=== PATIENT | male | born 1980 | race Caucasian/White ===

== ENCOUNTER 2018-02-14 17:57 | Emergency (ER) | payer BC, MEDICAID ==
[2018-02-14 18:12] VITALS: BP 132/97; PULSE 95; RESP 16; TEMP 98.3; O2SAT 99
[2018-02-14] MEDS ORDERED: Amoxicillin-Clav 875-125 mg Tab PO STA (18:18)
--- NOTE | 2018-02-14 18:18 | C.PDOC ---
History Of Present Illness 37 yo male come in for evaluation of Right earache gradually developed for past 3 days. Pt reports, pain is started to radiating down to Right lower jaw and neck area now. Otherwise, pt denies fever, chills, headache, dizziness, vertigo , ear discharge, sore throat, drooling, dysphagia, dyspnea, toothache, cough, CP , SOB, denies any other active complaints. Ambulate to Ed for evaluation, not in any apparent distress. Time Seen by Provider: 02/14/18 18:07 Chief Complaint (Nursing): ENT Problem History Per: Patient Onset/Duration Of Symptoms: Gradual Past Medical History Reviewed: Historical Data, Nursing Documentation, Vital Signs Vital Signs: Last Vital Signs Temp 98.3 F 02/14/18 18:10 Pulse 95 H 02/14/18 18:10 Resp 16 02/14/18 18:10 BP 132/97 H 02/14/18 18:10 Pulse Ox 99 02/14/18 18:10 - Medical History PMH: No Chronic Diseases Family History: States: No Known Family Hx - Social History Hx Alcohol Use: Yes Hx Substance Use: No - Immunization History Hx Tetanus Toxoid Vaccination: No Hx Influenza Vaccination: No Hx Pneumococcal Vaccination: No Review Of Systems Except As Marked, All Systems Reviewed And Found Negative. Constitutional: Negative for: Fever, Chills Eyes: Negative for: Vision Change ENT: Positive for: Ear Pain. Negative for: Ear Discharge, Mouth Pain, Mouth Swelling, Throat Pain, Throat Swelling Cardiovascular: Negative for: Chest Pain Respiratory: Negative for: Cough, Shortness of Breath, Wheezing Gastrointestinal: Negative for: Nausea, Vomiting, Abdominal Pain Musculoskeletal: Negative for: Neck Pain Neurological: Negative for: Headache, Dizziness Physical Exam - Physical Exam Appears: Well, Non-toxic, No Acute Distress Skin: Normal Color, Warm, Dry, No Rash Head: Normacephalic Eye(s): bilateral: PERRL Ear(s): Left: Normal, Right: TM Erythema, Bilateral: Other (no mastoid tenderness, edema or erythema) Nose: No Flaring, No Discharge Oral Mucosa: Moist, No Drooling Tongue: Normal Appearing Gingiva: Normal Appearing Throat: No Erythema, No Drooling Neck: Trachea Midline, Supple Lymphatic: Adenopathy (mild Right anterior cervical) Cardiovascular: Rhythm Regular, No Murmur Respiratory: No Decreased Breath Sounds, No Accessory Muscle Use, No Stridor, No Wheezing Back: Normal Inspection Extremity: Normal ROM, No Pedal Edema Neurological/Psych: Oriented x3, Normal Speech ED Course And Treatment O2 Sat by Pulse Oximetry: 99 Pulse Ox Interpretation: Normal Progress Note: On re-eavluation, pt is afebrile, hemodynamicaly stable. NOn- toxic. PulseOx 99% RA. ENT: exam c/w Right otitis media. neck: Supple, (-) JVD. Lungs: CTA B/L, BS equal B/L. Neuorlogicaly intact. Pt advised on course of ds. ref. to f/u with PMD in 2-3 days for re-eval. return to ED if any worsening ro new changes. Disposition Counseled Patient/Family Regarding: Diagnosis, Need For Followup, Rx Given - Disposition Referrals: Dario Faust MD [Staff Provider] - Disposition: HOME/ ROUTINE Disposition Time: 18:19 Condition: STABLE Additional Instructions: Avoid water exposure to Right ear Take medication as prescribed Follow up with PMD, ENT in 2-3 days for re-evaluation. return to ED if any worsening or new changes. Prescriptions: Amoxicillin/Clavulanate [Augmentin 875 MG-125 MG] 1 tab PO BID #14 tab Ibuprofen [Motrin Tab] 600 mg PO TID #20 tab Instructions: Ear Infections (Otitis Media) - Clinical Impression Clinical Impression: Otitis media
[2018-02-14] MEDS ORDERED: Amoxicillin-Clav 250-62.5 mg/5 ml Susp (75 ml) ONE (18:24)
== END 2018-02-14 18:46 | disposition home or self-care (01) ==
LOC: C.ER 17:57
DX: H66.91 Otitis media, unspecified, right ear (principal)

== ENCOUNTER 2018-11-19 17:58 | Emergency (ER) | payer MEDICAID, OTHER ==
[2018-11-19 18:08] VITALS: BP 121/86; PULSE 69; RESP 18; TEMP 98.6; O2SAT 99
[2018-11-19] MEDS ORDERED: Naproxen 550 mg Tab PO STA (18:25)
--- NOTE | 2018-11-19 18:27 | C.PDOC ---
History Of Present Illness 37 y/o male comes in to ED complaining of worsening lower back pain. Patient has a history of herniated disc and had surgery done 2 years ago. Reports that the pain is 7/10 and sharp. He has taken tylenol with minimal relief. Patient has not followed up with his doctor for the pain. He denies trauma or recent fall. Chief Complaint (Nursing): Back Pain History Per: Patient History/Exam Limitations: no limitations Onset/Duration Of Symptoms: Days Current Symptoms Are (Timing): Still Present Past Medical History Reviewed: Historical Data, Nursing Documentation, Vital Signs Vital Signs: Last Vital Signs Temp 98.6 F 11/19/18 18:04 Pulse 69 11/19/18 18:04 Resp 18 11/19/18 18:04 BP 121/86 11/19/18 18:04 Pulse Ox 99 11/19/18 18:04 - Medical History PMH: Back Problems Family History: States: No Known Family Hx - Social History Hx Alcohol Use: Yes Hx Substance Use: No - Immunization History Hx Tetanus Toxoid Vaccination: No Hx Influenza Vaccination: No Hx Pneumococcal Vaccination: No Review Of Systems Except As Marked, All Systems Reviewed And Found Negative. Gastrointestinal: Negative for: Nausea, Vomiting Genitourinary: Negative for: Dysuria, Hematuria Musculoskeletal: Positive for: Back Pain Physical Exam - Physical Exam Appears: Non-toxic, No Acute Distress Skin: Warm, Dry Head: Atraumatic Eye(s): bilateral: Normal Inspection Oral Mucosa: Moist Neck: Supple Back: Vertebral Tenderness, Paraspinal Tenderness Extremity: Normal ROM, No Tenderness, No Deformity, No Swelling Extremity: Bilateral: Atraumatic, Normal Color And Temperature Neurological/Psych: Oriented x3, Normal Speech, Normal Motor, Normal Sensation ED Course And Treatment O2 Sat by Pulse Oximetry: 99 (RA) Pulse Ox Interpretation: Normal Medical Decision Making Medical Decision Making: Plan: --Naproxen 550 mg PO --Flexeril 10 mg PO Disposition Counseled Patient/Family Regarding: Diagnosis, Need For Followup, Rx Given - Disposition Referrals: Kobe Barrett MD [Staff Provider] - Disposition: HOME/ ROUTINE Disposition Time: 18:28 Condition: IMPROVED Additional Instructions: Continue Naproxen and Flexeril as instructed follow up with Neurosurgery for further assessment- MRI may be warranted return to ED if symptoms worsen Prescriptions: Cyclobenzaprine [Flexeril] 10 mg PO TID PRN #15 tab PRN Reason: Muscle Spasm Naproxen [Naprosyn] 500 mg PO BID #30 tablet Instructions: Herniated Disc (DC), Do I Need an X-ray (or Other Test) for Low Back Pain? Forms: [facility] (Kazakh), Work Excuse - Clinical Impression Clinical Impression: Low back pain, Herniated disc - PA / [employer] / Resident 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 - Scribe Statement The provider has reviewed the documentation as recorded by the Scribvon Byrnes All medical record entries made by the Yvette were at my direction and personally dictated by me. I have reviewed the chart and agree that the record accurately reflects my personal performance of the history, physical exam, medical decision making, and the department course for this patient. I have also personally directed, reviewed, and agree with the discharge instructions and disposition.
[2018-11-19] MEDS ORDERED: Naproxen 550 mg Tab PO ONE (18:29)
== END 2018-11-19 18:37 | disposition home or self-care (01) ==
LOC: C.ER 17:58
DX: M51.26 Other intervertebral disc displacement, lumbar region (principal)

== ENCOUNTER 2018-11-26 17:03 | Emergency (ER) | payer OTHER ==
[2018-11-26 17:53] VITALS: TEMP 98.2; O2SAT 100
--- NOTE | 2018-11-26 18:19 | RAD ---
Date of service: 11/26/2018 PROCEDURE: Radiographs of the Lumbar Spine. Three views. HISTORY: s/p fall COMPARISON: Lumbar spine radiographs performed 09/04/16 FINDINGS: BONES: Alignment appears satisfactory. No listhesis. No acute displaced fracture identified. Degenerative changes including small anterior osteophyte formation. DISC SPACES: Intervertebral disc space narrowing most prominent at L4-L5. OTHER FINDINGS: None. IMPRESSION: No acute displaced fracture or dislocation identified. Intervertebral disc space narrowing most prominent at L4-L5.
--- NOTE | 2018-11-26 18:38 | C.PDOC ---
History Of Present Illness Patient is a 38 year old male who presents to the ED s/p fall that happened 4 days ago and is c/o low back pain. Patient states that he was walking downstairs and slipped and fell down 4 steps. He denies any head injury, LOC, injury, weakness, numbness, or urinary or bowel incontinence. Of note: He was here recently in the ED c/o back pain and was given Naproxen and Flexeril for history of Herniated disc. He has not been compliant with meds. Chief Complaint (Nursing): Back Pain History Per: Patient History/Exam Limitations: no limitations Onset/Duration Of Symptoms: Days (4) Current Symptoms Are (Timing): Still Present Recent travel outside of the [place]: No Additional History Per: Patient Past Medical History Reviewed: Historical Data, Nursing Documentation, Vital Signs Vital Signs: Last Vital Signs Temp 98.2 F 11/26/18 17:52 Pulse 94 H 11/26/18 17:52 Resp 19 11/26/18 17:52 BP 122/84 11/26/18 17:52 Pulse Ox 100 11/26/18 17:52 Primary Care Provider: Alexi Reyna Surg - Medical History PMH: Back Problems Surgical History: No Surg Hx Family History: States: No Known Family Hx - Social History Hx Alcohol Use: Yes Hx Substance Use: No - Immunization History Hx Tetanus Toxoid Vaccination: No Hx Influenza Vaccination: No Hx Pneumococcal Vaccination: No Review Of Systems Cardiovascular: Negative for: Chest Pain Respiratory: Negative for: Shortness of Breath Genitourinary: Negative for: Incontinence Musculoskeletal: Positive for: Back Pain (low ) Neurological: Negative for: Weakness, Numbness Physical Exam - Physical Exam Appears: Non-toxic, No Acute Distress Skin: Warm, Dry Head: Atraumatic, Normacephalic Eye(s): bilateral: PERRL, EOMI Oral Mucosa: Moist Neck: Normal ROM, Supple Chest: Symmetrical Cardiovascular: Rhythm Regular, No Murmur Respiratory: Normal Breath Sounds, No Accessory Muscle Use Gastrointestinal/Abdominal: Soft, No Tenderness Back: Vertebral Tenderness (lumbar spine ), Decreased ROM (limited ROM with pain ), Paraspinal Tenderness (lumbar spine ), Other (no ecchymosis, edema, or erythema) Extremity: Capillary Refill (less than 2 seconds) Pulses: Left Dorsalis Pedis: Normal, Right Dorsalis Pedis: Normal Neurological/Psych: Oriented x3 ED Course And Treatment O2 Sat by Pulse Oximetry: 100 (on RA) Pulse Ox Interpretation: Normal - Other Rad Xray LS Spine X-Ray: Viewed By Me, Read By Radiologist Interpretation: Date of service: 11/26/2018. PROCEDURE: Radiographs of the Lumbar Spine. Three views. HISTORY: s/p fall. COMPARISON: Lumbar spine radiographs performed 09/04/16. FINDINGS: BONES: Alignment appears satisfactory. No listhesis. No acute displaced fracture identified. Degenerative changes including small anterior osteophyte formation. DISC SPACES: Intervertebral disc space narrowing most prominent at L4-L5. OTHER FINDINGS: None. IMPRESSION: No acute displaced fracture or dislocation identified. Intervertebral disc space narrowing most prominent at L4-L5. Medical Decision Making Medical Decision Making: Plan: Xray LS Spine ordered and reviewed with patient patient advised to restart medications previously prescribed for pain on last visit- Naproxen and Flexeril Rest and ice the area Follow up with PMD Follow up with Ortho/neurosurgery clinic Return to ED if symptoms worsen Patient verbalizes understanding and is in agreement with plan. Patient is stable for discharge. Disposition Counseled Patient/Family Regarding: Studies Performed, Diagnosis, Need For Followup, Rx Given - Disposition Referrals: [facility] [Outside] Disposition: HOME/ ROUTINE Disposition Time: 19:28 Condition: IMPROVED Additional Instructions: Start medications previously prescribed for pain on last visit- Naproxen and Flexeril Rest and ice the area Follow up with PMD Follow up with Ortho/neurosurgery clinic Return to ED if symptoms worsen Prescriptions: Lidocaine 5% [Lidoderm] 1 ea TD PRN PRN #30 patch PRN Reason: Pain, Moderate (4-7) Instructions: Muscle Strain (DC) Forms: [facility] (Frisian), Work Excuse - Clinical Impression Clinical Impression: Low back pain, Low back strain - 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 - Scribe Statement The provider has reviewed the documentation as recorded by the Yvette Wilkerson All medical record entries made by the Neoibvon were at my direction and personally dictated by me. I have reviewed the chart and agree that the record accurately reflects my personal performance of the history, physical exam, medical decision making, and the department course for this patient. I have also personally directed, reviewed, and agree with the discharge instructions and disposition.
[2018-11-26] MEDS ORDERED: Naproxen 550 mg Tab PO STA (19:17)
[2018-11-26] MEDS ORDERED: Lidocaine 5% Patch TD STA (19:31)
[2018-11-26 19:33] VITALS: BP 130/88; PULSE 90; RESP 18
[2018-11-26] MEDS ORDERED: Naproxen 550 mg Tab PO ONE (19:33)
[2018-11-26] MEDS ORDERED: Lidocaine 5% Patch TD ONE (19:34)
== END 2018-11-26 19:39 | disposition home or self-care (01) ==
LOC: C.ER 17:03
DX: S39.012A Strain of muscle, fascia and tendon of lower back, initial encounter (principal); W10.9XXA Fall (on) (from) unspecified stairs and steps, initial encounter